=== PATIENT | female | born 1960 | race African-American/Black ===

== ENCOUNTER 2018-03-20 17:46 | Observation (INO) | payer OTHER ==
[~2018-03-20] VITALS: Ht 167.6 cm; Wt 93.9 kg
--- NOTE | 2018-03-20 18:32 | Diagnostic Imaging Report ---
EXAMINATION: CXR 2 VIEW - HOPD INDICATION: Chest pain COMPARISON: None FINDINGS: PA and lateral views TUBES and LINES: None. LUNGS: Lungs are well inflated. Lungs are clear. There is no evidence of pneumonia or pulmonary edema. PLEURA: No pleural effusion or pneumothorax. HEART AND MEDIASTINUM: The cardiomediastinal silhouette is unremarkable. BONES AND SOFT TISSUES: No acute osseous lesion. Soft tissues are unremarkable. UPPER ABDOMEN: No free air under the diaphragm. IMPRESSION: No acute thoracic abnormality. Signed by: Dr. Greyson Russell MD on 03/20/2018 6:28 PM
[2018-03-20] MEDS ORDERED: ASPIRIN 325 MG TAB PO ONE (19:30)
[2018-03-20] MEDS ORDERED: INSULIN REGULAR, HUMAN 100 UNIT/1 ML 3ML VIAL SQ ONE (19:30)
[2018-03-20] MEDS ORDERED: SODIUM CHLORIDE FLUSH 10 ML SYR INJ PRN (20:00)
[2018-03-20] MEDS ORDERED: DEXTROSE 50% SYRINGE 50 ML IV PRN (20:00)
[2018-03-20 21:50] VITALS: BP 183/91
[2018-03-20 21:54] VITALS: BP 183/91
[2018-03-20] MEDS ORDERED: TRULICITY SC (22:32)
[2018-03-20] MEDS ORDERED: ASPIR 8181 MG PO (22:32)
[2018-03-20] MEDS ORDERED: LISINOPRIL2.5 MG PO (22:32)
[2018-03-20] MEDS ORDERED: NOVOLOG100 UNIT/1 SC (22:32)
[2018-03-20] MEDS ORDERED: METFORMIN HCL500 M2 PO (22:32)
[2018-03-20] MEDS ORDERED: HYDRALAZINE HCL 20 MG/ML VIAL IV PRN (22:45)
[2018-03-20] MEDS ORDERED: GUAIFENESIN 200 MG/10 ML UDC PO PRN (22:45)
[2018-03-20] MEDS: INSULIN REGULAR, HUMAN 100 UNIT/1 ML 3ML VIAL SQ SCH (23:04)
[2018-03-21] VITALS (7 sets, daily range): BP systolic 114–137; BP diastolic 56–79
[2018-03-21 03:17] LABS: CREATINE KINASE 93 IU/L (29-168)
[2018-03-21] MEDS ORDERED: HYDRALAZINE HCL 20 MG/ML VIAL ONE (06:15)
[2018-03-21] MEDS: INSULIN REGULAR, HUMAN 100 UNIT/1 ML 3ML VIAL SQ SCH ×4 (08:15→21:00)
[2018-03-21] MEDS: ASPIRIN 81 MG CHEW TAB PO SCH (08:23)
[2018-03-21] MEDS: LISINOPRIL 2.5 MG TAB PO SCH (08:23)
--- NOTE | 2018-03-21 11:41 | Consultation ---
03/21/2018 history and physical This is a patient of Dr. Sinha and Dr. Platt. 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 She has had similar pains once before. The pain was sharp and then dull. 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 She was also found to have high blood pressure in the urgent care. She does not have a history of hypertension. She has been on lisinopril as a renal protective measure. Blood pressure was 183/91. Diabetic for 16 years. Blood sugar has been ranging high over the last 3 months. She has not seen Dr. Crook in that period. She has had a hysterectomy and tubal ligation. Sister of pulmonary fibrosis. Nonsmoker. No alcohol. NO ALLERGIES. MEDICATIONS: Include: 1. Trulicity once a week. 2. Metformin 2 g a day. 3. Lisinopril 5 mg. 4. NovoLog insulin. She has been gaining weight. She has a history of hypertension, diabetes, seasonal allergies. No history of hematological malignancies. PHYSICAL EXAMINATION VITALS: Temperature 96.7, pulse 75, respirations 16, blood pressure 122/62. HEENT: Head is normocephalic and atraumatic. Eyes: The extraocular movements are intact. LUNGS: Clear. HEART: Regular rhythm. ABDOMEN: Nontender. EXTREMITIES: Not edematous. IMPRESSION: Atypical pain. Cardiac evaluation is pending. Check CBC. Ultrasound of the gallbladder. Therapy of diabetes. She denies endocrinology opinion at this time. Cardiology opinion is pending. Thank you for this kind referral. Job#: [id number] VINICIUS
[2018-03-21 11:44] LABS: BASOPHILS % 0.7 % (0.0-1.0); EOSINOPHILS % 0.7 % (0.0-6.0); HEMATOCRIT 39.2 % (34.2-44.1); HEMOGLOBIN 13.3 g/dL (12.0-16.0); LYMPHOCYTES # (AUTO) 1.7 (1.0-3.2); MEAN CORPUSCULAR HEMOGLOBIN 29.1 pg (28-32); MEAN CORPUSCULAR HGB CONC 33.9 g/dL (31-35); MEAN CORPUSCULAR VOLUME 85.8 fL (81-99); MONOCYTES # (AUTO) 0.3 (0.2-0.8); MONOCYTES % 7.4 % (4.4-11.3); NEUTROPHILS # (AUTO) 2.2 (2.1-6.9); PLATELET COUNT 273 x10e3/uL (140-360); RED BLOOD COUNT 4.57 x10e6/uL (3.6-5.1); RED CELL DISTRIBUTION WIDTH 12.6 % (11.7-14.4)
[2018-03-21 12:07] LABS: CREATINE KINASE 109 IU/L (29-168)
[2018-03-21 12:27] LABS: ALANINE AMINOTRANSFERASE 22 IU/L (0-55); ALBUMIN 3.3 g/dL (3.5-5.0); ALBUMIN/GLOBULIN RATIO 1.1 (0.8-2.0); ALKALINE PHOSPHATASE 85 IU/L (40-150); ANION GAP 14.2 mmol/L (8-16); BLOOD UREA NITROGEN 17 mg/dL (7-26); BUN/CREATININE RATIO 21 (6-25); CALCIUM 9.2 mg/dL (8.4-10.2); CARBON DIOXIDE 26 mmol/L (22-29); CHLORIDE 102 mmol/L (98-107); CREATININE, SERUM 0.82 mg/dL (0.57-1.11); EST GLOMERULAR FILTRATION RATE > 60 ML/MIN (60-); GLUCOSE 263 mg/dL (74-118); POTASSIUM 4.2 mmol/L (3.5-5.1); SODIUM 138 mmol/L (136-145)
--- NOTE | 2018-03-21 14:44 | Diagnostic Imaging Report ---
EXAMINATION: Right upper quadrant ultrasound CLINICAL INDICATION: Pain COMPARISON: None DISCUSSION: Transverse and longitudinal images of the right upper quadrant were obtained. The liver is normal in size measuring 15.2centimeters in length in the right midclavicular line and shows normal echogenicity. No focal masses are seen in the liver. There is no intrahepatic biliary dilatation. The common bile duct is normal in caliber and measures 0.6 cm. The main portal vein is normal in caliber and measures 0.9 cm with normal hepatopetal flow. The gallbladder is normal in appearance without stones, wall thickening or pericholecystic fluid. The sonographic Price's sign is negative. The visualized portions of the pancreatic body are unremarkable. The right kidney measures 11.5 centimeters in length. There is normal renal cortical echogenicity and no hydronephrosis, mass or shadowing calculi. The visualized portions of the great vessels are normal. No free fluid is seen. IMPRESSION: Normal right upper quadrant ultrasound Signed by: Dr. Anders Goff M.D. on 03/21/2018 2:42 PM
[2018-03-21] MEDS: METFORMIN HCL 500 MG TAB PO SCH (18:01)
[2018-03-21 20:31] LABS: CREATINE KINASE 123 IU/L (29-168)
[2018-03-21] MEDS ORDERED: ATORVASTATIN 10 MG TAB PO SCH (21:00)
[2018-03-21] MEDS: HEPARIN SOD (PORCINE) 5,000 UNIT/ML VIAL SC SCH (21:00)
[2018-03-22 00:02] VITALS: BP 137/68
--- NOTE | 2018-03-22 04:35 | Discharge Summary ---
Patient of Dr. Platt and Dr. Sinha. 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 She was hypertensive in the urgent care center. She has a history of insulin dependent diabetes. She was diagnosed some 16 years ago. She has also had elevated blood pressure. She underwent ultrasound of the gallbladder. There was no evidence of gallstones. D-dimer was normal. EKG and echocardiogram per preliminary report is normal. She was seen by cardiology and cleared for discharge with followup as an outpatient on Friday for a cardiac stress test. She would continue her home medications including Trulicity, lisinopril 5 mg, sliding scale insulin, and metformin 1 g twice a day. She was discharged at her request and recommendation of cardiology. Chest x-ray was normal as was D-dimer. Cardiac enzymes were normal. Follow up with Dr. Platt and Dr. Sinha. Blood sugar was elevated on admission at 235-263. Hemoglobin A1c was markedly elevated at 18.1. She declined endocrinology and wished to follow up with Dr. Sinha. TERI KEITA MD Job#: [id number] VAS cc:DR PRESLEY SINHA
[2018-03-22 05:15] VITALS: BP 121/60
[2018-03-22 05:21] LABS: CHOL/HDL RATIO 5.4 (3.0-3.6)
[2018-03-22 08:18] VITALS: BP 133/69
[2018-03-22] MEDS: HEPARIN SOD (PORCINE) 5,000 UNIT/ML VIAL SC SCH (09:00)
[2018-03-22 09:12] VITALS: BP 133/69
[2018-03-22] MEDS: LISINOPRIL 2.5 MG TAB PO SCH (09:12)
[2018-03-22] MEDS: INSULIN REGULAR, HUMAN 100 UNIT/1 ML 3ML VIAL SQ SCH (09:12)
[2018-03-22] MEDS: ASPIRIN 81 MG CHEW TAB PO SCH (09:12)
[2018-03-22] MEDS: METFORMIN HCL 500 MG TAB PO SCH (09:12)
[2018-03-22 11:46] VITALS: BP 131/67
[2018-03-22] MEDS ORDERED: METFORMIN HCL500 MG PO (11:59)
--- NOTE | 2018-03-22 13:11 | Discharge Summary ---
The patient was supposed to go home yesterday. However, she decided to stay. FINAL DIAGNOSES 1. Diabetes, uncontrolled. 2. Hypertension. ADMISSION HISTORY AND HOSPITAL COURSE: This is a 57-year-old female with left-sided chest pain. Cardiology cleared the patient. No evidence of gallstones. She underwent ultrasound of the gallbladder. D-dimer was normal. Echo per preliminary report was normal. The patient will be discharged home to follow up with her primary care physician. DISCHARGE MEDICATIONS: List reviewed and prescriptions given. JOHN TALBOT MD Job#: [id number]
== END 2018-03-22 12:51 | disposition home or self-care (01) ==
LOC: FSED 17:46 → ERHOLD 19:50 → MED/SURG 21:26
PROVIDERS: ADMIT Internal Medicine; ATTEND Internal Medicine
DX: R07.89 Other chest pain (principal); E11.65 Type 2 diabetes mellitus with hyperglycemia; I10 Essential (primary) hypertension; Z79.4 Long term (current) use of insulin
CPT/HCPCS: 36415 ×3; 71046; 76705; 80053; 80061; 82044; 82550; 82553; 82948 ×3; 83036; 84484; 85025; 85379; 93005; 93306; 96372 ×2; 99284; G0378 ×3; J0360 ×2; J1644 ×2